=== PATIENT | male | born 1980 | race Caucasian/White ===

== ENCOUNTER 2017-04-12 14:11 | Emergency (ER) | payer BC ==
[~2017-04-12] VITALS: Ht 188 cm; Wt 99.5 kg
[~2017-04-12 14:11] MED LIST: HYDR-3533 PO; NAPR500 PO
[2017-04-12 14:18] VITALS: BP 162/89; PULSE 78; RESP 16; TEMP 98.6; O2SAT 95
[2017-04-12] MEDS ORDERED: LIPI10TA PO (15:31)
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
== END 2017-04-12 15:47 | disposition left against medical advice (07) ==
LOC: PHED 14:11
DX: M25.561 Pain in right knee (principal); V86.59XA Driver of other special all-terrain or other off-road motor vehicle injured in nontraffic accident, initial encounter
CPT/HCPCS: 99281